=== PATIENT | female | born 2000 | race Caucasian/White ===

== ENCOUNTER 2020-07-27 03:26 | Day surgery (SDC) | payer OTHER ==
[~2020-07-27] VITALS: Ht 165.1 cm; Wt 52.3 kg
[2020-07-27] VITALS (7 sets, daily range): BP systolic 83–117; BP diastolic 58–73; PULSE 88–109; TEMP 98.6
[2020-07-27 04:04] LABS: BASO # 0.1 (0.0-0.2); BASO % 0.4 % (0.0-2.0); EOS # 0.1 (0.0-0.7); EOS % 0.5 % (0-4.0); GRAN % 86.6 % (42.2-75.2); HEMATOCRIT 41.3 % (37.0-47.0); HEMOGLOBIN 14.1 g/dl (12.5-16.0); LYMPH # 1.7 (1.2-3.4); MEAN CELL VOLUME 88 fl (80.0-100.0); MEAN CORPUSCULAR HEMOGLOBIN 30 pg (27.0-31.0); MEAN CORPUSCULAR HGB CONC 34 g/dl (33.0-37.0); MEAN PLATELET VOLUME 10.2 fl (7.4-10.4); MONO # 0.9 (0.1-0.6); MONO % 4.1 % (1.7-9.3); PLATELET COUNT 376 K/mm3 (130-400); RED BLOOD COUNT 4.71 M/mm3 (4.10-5.30); REDCELL DISTRIBUTION WIDTH-CV 11.9 % (11.5-14.5)
[2020-07-27 04:15] LABS: ALBUMIN 4.8 gm/dL (3.5-5.0); CALCIUM 9.5 mg/dL (8.4-10.2); CREATININE, serum 0.75 (0.52-1.25); POTASSIUM 3.5 mmol/L (3.4-5.0); TOTAL PROTEIN 8.3 gm/dL (6.4-8.2)
[2020-07-27 10:02] LABS: PH 5 (5-8); SQUAMOUS EPITHELIAL 0-2 /hpf; URINE APPEARANCE Clear; URINE BACTERIA None Seen /hpf; URINE BILIRUBIN Negative (NEGATIVE); URINE BLOOD Negative (NEGATIVE); URINE COLOR Yellow; URINE GLUCOSE Negative (NEGATIVE); URINE KETONE Negative (NEGATIVE); URINE LEUKOCYTE ESTERASE Negative (NEGATIVE); URINE NITRATE Negative (NEGATIVE); URINE PROTEIN(semi-quant) Negative (NEGATIVE); URINE RBC 0-2 /hpf; URINE UROBILINOGEN Negative (NEGATIVE); URINE WBC 0-2 /hpf
[2020-07-27 11:04] LABS: COLLECTION METHOD CLEAN CATCH
--- NOTE | 2020-07-27 14:25 | NUR ---
Recieved patient from PACU after laparoscopic appendectomy. Patient was taken from the ER to surgery. IV fluids infusing and site is free of redness. Bandaids x3 on abdomen dry and intact. Abdomen soft and flat. Denies pain or nausea. Siderails up x2 and call light in reach. Allowed to rest.
--- NOTE | 2020-07-27 14:40 | NUR ---
Resting with eyes closed and not disturbed.
--- NOTE | 2020-07-27 14:55 | NUR ---
More awake and sipping on Sprite. Eating pudding. Denies pain or nausea.
--- NOTE | 2020-07-27 15:10 | NUR ---
Eating chocolate pudding and rests without complaints of pain or nausea.
--- NOTE | 2020-07-27 15:25 | NUR ---
Resting with eyes closed when not disturbed.
--- NOTE | 2020-07-27 16:25 | NUR ---
Dr. Fuenets in the room talking with the patient. All questions answered and maybe discharged to home.
--- NOTE | 2020-07-27 16:30 | NUR ---
Dewy Rose 5mg one tab for incisional pain rating of 4-5/10. Patient is talking on the phone with mother.
[2020-07-27] MEDS ORDERED: NORCO 325 MG-51 TAB PO (16:46)
--- NOTE | 2020-07-27 17:00 | NUR ---
IV discontinued and assisted with dressing.
--- NOTE | 2020-07-27 17:10 | NUR ---
Patient given dismissal instructions and voices understanding of these. Patient dismissed to home and taken to the emergency room entrance by wheelchair and dismissed to home driven by brother.
== END 2020-07-27 17:10 | disposition home or self-care (01) ==
LOC: COL.ER 03:26 → SDCO 07:08
PROVIDERS: Emergency Medicine
DX: R10.31 Right lower quadrant pain (principal); K38.8 Other specified diseases of appendix; Z20.822 Contact with and (suspected) exposure to COVID-19; Z79.3 Long term (current) use of hormonal contraceptives
CPT/HCPCS: J0690; J1100; J1885; J2270; J2405; J2543; J2704; J3010; J3475; J7030; Q9967